=== PATIENT | female | born 1995 | race Caucasian/White ===

== ENCOUNTER → 2018-01-04 | Outpatient (CLI) | payer OTHER | LOC: HPND 09:24 | PROVIDERS: ATTEND Family Medicine | DX: O26.842 Uterine size-date discrepancy, second trimester (principal); O09.32 Supervision of pregnancy with insufficient antenatal care, second trimester | CPT/HCPCS: 76805 ==

== ENCOUNTER → 2018-02-01 | Outpatient (CLI) | payer OTHER | LOC: HPND 10:01 | PROVIDERS: ATTEND Family Medicine | DX: Z36.2 Encounter for other antenatal screening follow-up (principal); O09.32 Supervision of pregnancy with insufficient antenatal care, second trimester | CPT/HCPCS: 76816 ==

== ENCOUNTER 2018-05-03 17:54 | Inpatient (IN) ==
[2018-05-03] MEDS ORDERED: Naloxone Inj 0.4 MG/ML Vial IV.PUSH PRN (19:14)
[2018-05-03] MEDS ORDERED: fentaNYL Citrate Inj 100 MCG/2 ML Ampul IV.PUSH PRN (19:14)
[2018-05-03] MEDS ORDERED: Sodium Chlor 0.9% Inj 500 ML IV.SIG ONE (19:14)
[2018-05-03] MEDS ORDERED: Oxytocin 30 Units/500ml Premix 30 UNITS/500 ML BAG IV.SIG ONE (19:14)
[2018-05-03] MEDS ORDERED: Sod Chloride 0.9% Inj 1,000 ML IV.CONT SCH (19:15)
[2018-05-03] MEDS ORDERED: Citric Acid/Sodium Citrate Liq 30 ML UDC PO SCH (19:15)
--- NOTE | 2018-05-03 19:17 | ED ---
History of Present Illness Primary Care Physician: NOT REQUIRED Chief Complaint: Contractions History of Present Illness: 22-year-old who is at approximately 42 weeks gestation based on an EDC from a 26 week ultrasound comes in complaining of occasional contractions and concern about well-being. Patient has no care except for single visit to the [facility] but denies any obvious complications Weeks Gestation:: 42 Para: 0 : 1 - Inpatient Certification If this patient has been admitted as an Inpatient: I certify that the inpatient services were ordered in accordance with Medicare regulations governing the order. This includes certification that hospital inpatient services are reasonable and necessary and in the case of services not specified as inpatient-only under 42 CFR 419.22(n), that they are appropriately provided as inpatient services in accordance to with the 2-midnight benchmark under 43 CFR 412.3(e) Review of Systems All other systems reviewed negative except as stated in HPI PMFSH - Medical / Surgical Hx Neg / Unobtainable Medical Problems Denied: Yes Surgical History: No Previous Surgery - Tobacco History Second Hand Smoke Exposure: No Smoking Status: Never smoker - Travel History Recent Travel in the [place] Within the Last 8 Weeks: No Recent Travel Out of the Country Within the Last 8 Weeks: No Medications and Allergies Allergies Allergy/AdvReac Type Severity Reaction Status Date / Time No Known Allergies Allergy Verified 05/03/18 18:31 Home Medications Medication Instructions Recorded Confirmed Type PNV #[id number] 1 tab PO DAILY 05/03/18 05/03/18 History Exam Vital signs: Vital Signs 05/03/18 18:20 05/03/18 18:25 05/03/18 18:50 Temperature 98.3 F Pulse Rate 78 92 H 95 H Respiratory Rate 16 Blood Pressure 131/83 05/03/18 18:55 Temperature Pulse Rate 87 Respiratory Rate Blood Pressure Intake & Output 05/03/18 05/03/18 05/04/18 06:59 18:59 06:59 Weight 84 kg - Constitutional no acute distress - Routine HEENT Exam Head: Present: normocephalic - Routine Neck Exam Present: supple - Routine Respiratory Exam Present: CTA bilaterally - Routine Cardiovascular Exam Present: RRR - Routine Abdominal Exam Present: soft Comments: Gravid - Routine Exam Comments: Cervix is 1/50/-3 heart rate baseline is 140 with moderate variability, accelerations are present, decelerations are absent, category 1 tracing Triage/Final Diagnosis - Evaluation Vital signs: Vital Signs - 24 hr 05/03/18 18:20 05/03/18 18:25 05/03/18 18:50 Temperature 98.3 F Pulse Rate 78 92 H 95 H Respiratory Rate 16 Blood Pressure 131/83 05/03/18 18:55 Temperature Pulse Rate 87 Respiratory Rate Blood Pressure - Final Diagnosis (1) 42 weeks gestation of Current Visit: Yes Status: Acute (2) False labor after 37 completed weeks of gestation Current Visit: Yes Status: Acute (3) No care in current in third trimester Current Visit: Yes Status: Acute
[2018-05-03 20:55] LABS: Baso % (Auto) 0.4 % (0.0-2.0); Eos # (Auto) 0.1 th/mm3 (0.0-0.4); Eos % (Auto) 1.7 % (0.0-4.0); Hematocrit 38.7 % (35.0-46.0); Hemoglobin 12.9 gm/dL (11.6-15.3); Lymph # (Auto) 2.3 th/mm3 (1.0-4.8); Mean Corpuscular HGB Conc 33.4 % (32.0-36.0); Mean Corpuscular Hemoglobin 28.9 pg (27.0-34.0); Mean Corpuscular Volume 86.4 fL (80.0-100.0); Mono # (Auto) 0.7 th/mm3 (0.0-0.9); Mono % (Auto) 8.1 % (0.0-8.0); Neut # (Auto) 5.7 th/mm3 (1.8-7.7); Neut % (Auto) 63.8 % (16.0-70.0); Platelet Count 244 th/mm3 (150-450); Red Blood Count 4.48 mil/mm3 (4.00-5.30); Red Cell Distribution Width 15.3 % (11.6-17.2); White Blood Count 8.9 th/mm3 (4.0-11.0)
[2018-05-03 21:03] LABS: Amphetamine Urine With Conf Neg (Neg); Benzodiazepine Urine With Conf Neg (Neg)
[2018-05-03 21:22] LABS: Bacteria,Urine Occasional /hpf; Bilirubin,Urine Negative (Negative); Clarity,Urine Hazy (Clear); Color,Urine Yellow (Yellw/Straw); Glucose,Urine (UA) Negative (Negative); Leukocyte Esterase,Urine Trace (Negative); Mucus,Urine Few /lpf (Occasional); Nitrite,Urine Negative (Negative); Specific Gravity,Urine 1.024 (1.002-1.035); Squamous Epithelial Cell,Urine 5 /hpf (0-5)
[2018-05-04] MEDS: fentaNYL Citrate Inj 100 MCG/2 ML Ampul IV.PUSH PRN ×2 (01:58→04:28)
[2018-05-04] MEDS ORDERED: fentaNYL 2MCG-Bupiv 0.125% Epi 150 ML EPIDURAL ONE (07:20)
[2018-05-04] MEDS ORDERED: fentaNYL Citrate Inj 100 MCG/2 ML Ampul EPIDURAL ONE ×2 (08:16→08:18)
[2018-05-04] MEDS ORDERED: fentaNYL 2MCG-Bupiv 0.125% Epi 150 ML EPIDURAL PRN (08:23)
[2018-05-04] MEDS ORDERED: Oxytocin 30 Units/500ml Premix 30 UNITS/500 ML BAG IV.SIG PRN (08:43)
--- NOTE | 2018-05-04 09:00 | P.OBLABOR ---
Subjective Interval history: Epidural placed. Patient feeling contractions. IUPC placed. Pitocin started at 2 ,2,30. Cervix dilated to 5. Objective Vital Signs: Vital Signs - 8 hr 05/04/18 01:00 05/04/18 01:30 05/04/18 02:01 Temperature 98.0 F Pulse Rate Respiratory Rate 18 18 Blood Pressure 05/04/18 03:00 05/04/18 03:30 05/04/18 04:30 Temperature Pulse Rate 86 Respiratory Rate 18 18 18 Blood Pressure 135/82 05/04/18 05:58 05/04/18 06:44 05/04/18 06:45 Temperature Pulse Rate 92 H Respiratory Rate 18 18 Blood Pressure 136/88 05/04/18 07:37 05/04/18 07:40 05/04/18 07:54 Temperature Pulse Rate 103 H 101 H Respiratory Rate 22 Blood Pressure 142/61 H 129/83 05/04/18 07:55 05/04/18 08:10 05/04/18 08:15 Temperature Pulse Rate 103 H 107 H 88 Respiratory Rate Blood Pressure 131/81 128/78 134/77 05/04/18 08:27 05/04/18 08:35 05/04/18 08:40 Temperature Pulse Rate 78 90 87 Respiratory Rate Blood Pressure 137/81 101/75 Objective: Pelvic Exam: Cervix: Open Dilatation: 5 Effacement: 90 Station: -2 Presentation: vertex Membranes: ruptured Uterine Contractions: Every 2-3 minutes FHT's: Category: 2 Baseline: 120 Reactive: yes Variability: moderate Decels: variables Weeks Gestation: 41 Assessment and Plan - Diagnosis (1) 42 weeks gestation of Code(s): Z3A.42 - 42 weeks gestation of Status: Acute (2) No care in current in third trimester Code(s): O09.33 - Supervision of with insufficient care, third trimester Status: Acute - Plan GBS negative. Cervix 5/90/-2 FHT reassuring Continue to monitor contractions and progression, monitor q2hrs
[2018-05-04] MEDS ORDERED: Witch Hazel 50%/Glyderin 12.5% 40 Pad Jar RECTAL PRN (11:25)
[2018-05-04] MEDS ORDERED: Benzocaine 20% Top Spray 60 ML Can TOPICAL PRN (11:25)
[2018-05-04] MEDS ORDERED: Zolpidem Tartrate 5 MG Tablet PO PRN (11:25)
[2018-05-04] MEDS ORDERED: Bisacodyl 10 MG Supp RECTAL PRN (11:25)
--- NOTE | 2018-05-04 11:40 | P.OBDELI ---
Weeks Gestation: 41 Medical Induction of Labor: Yes Artificial Rupture of Membrane: No Anesthesia: Epidural Vaginal Delivery: Spontaneous Presentation: Occiput anterior Nuchal Cord: x1 Delayed Cord Clamping (45 sec): Yes Laceration: 1 deg (at 4 o clock position) Repair: Vicryl running (2 stitches) Estimated blood loss (mL): 200 : Female Infant Female A Infant Delivery Date: 05/04/18 Delivery Time: 11:08 score (1 min): 7 score (5 min): 8 Additional Information: 22yo G1PO at 42/1 induced for post dates. Head delivered with maternal effort ZANDRA. Anterior shoulder delivered closely followed by posterior shoulder. Meconium fluid present. body followed. Infant placed on mother's chest. Cord clamping was delayed. First degree laceration noted in 4 oclock position, repaired with 2 stitches of 3-0 vicryl. Routine post care initiated. Attestation Attestation: The exam, history, and the medical decision-making described in the above note were completed with the assistance of the resident physician. I reviewed and agree with the findings presented. I attest that I had a [id number] encounter with the patient on the same day, and personally performed and documented my assessment and findings in the medical record.
[2018-05-04] MEDS ORDERED: Measles/Mumps/Rubella Vaccine Inj 0.5 ML Vial SQ ONE (16:00)
[2018-05-04] MEDS ORDERED: Diphtheria/Tetanus/Pertussis Vaccine Inj 0.5 ML Syringe IM ONE (16:00)
[2018-05-04] MEDS: Ibuprofen 400 MG Tablet PO PRN (20:15)
[2018-05-04] MEDS: Senna/Docusate Sodium 8.6/50 MG Tablet PO SCH (20:15)
[2018-05-05] MEDS: Senna/Docusate Sodium 8.6/50 MG Tablet PO SCH (09:14)
[2018-05-05] MEDS: Ibuprofen 400 MG Tablet PO PRN ×2 (09:14→19:56)
--- NOTE | 2018-05-05 10:17 | P.PNOB ---
Subjective Post day: 1 Interval history: Patient is a 22-year-old delivered at 42 weeks and 1 day. Patient is day 1 after induced vaginal delivery. Patient's pain is well- controlled. Patient reports minimal bleeding. Patient reports eating and drinking without any nausea or vomiting. Patient has passed gas but has not had a bowel movement. Patient denies chest pain and shortness of breath. Patient has been ambulating; she denies lower extremity pain. Patient reports desire for contraception, which she will discuss with her OB provider at her six week follow-up. Patient has decided to breast-feed. Baby is in NICU and is unable to tolerate feeds so mom is actively pumping. Objective Vital Signs/I&O: Vital Signs 05/04/18 10:25 05/04/18 10:30 05/04/18 11:14 Temperature 97.7 F Pulse Rate 85 86 107 H Respiratory Rate Blood Pressure 120/76 134/63 05/04/18 11:42 05/04/18 11:55 05/04/18 12:00 Temperature Pulse Rate 106 H 124 H Respiratory Rate 18 18 Blood Pressure 158/126 H 136/97 H 05/04/18 12:15 05/04/18 12:30 05/04/18 12:45 Temperature Pulse Rate 87 89 87 Respiratory Rate 18 20 18 Blood Pressure 122/76 132/80 110/70 05/04/18 14:39 05/04/18 16:51 05/04/18 20:20 Temperature 99.9 F H 98.4 F 98.2 F Pulse Rate 85 98 H Respiratory Rate 18 20 Blood Pressure 129/66 123/78 05/05/18 08:00 Temperature 97.6 F Pulse Rate 87 Respiratory Rate 20 Blood Pressure 105/75 Intake & Output 05/04/18 05/05/18 05/05/18 18:59 06:59 18:59 Intake Total 1000 / 1000 Balance 1000 / 1000 Intake: IV 1000 / 1000 LR 1000 mL Inj 1,000 ML @ 125 1000 / 1000 mls/hr IV.CONT .Q8H [facility] Rx#: [id number] Result Diagrams: 05/03/18 19:40 Objective Remarks: GENERAL: Well-nourished, well-developed patient. CARDIOVASCULAR: Regular rate and rhythm without murmurs, gallops, or rubs. RESPIRATORY: Breath sounds equal bilaterally. No accessory muscle use. ABDOMEN/GI: Abdomen soft, non-tender. Fundus: Firm, non-tender at umbilicus. GENITOURINARY: Light to moderate bleeding. EXTREMITIES: No cyanosis or edema, non-tender, without signs of DVT. Medications and IVs: Active Medications Al Hydroxide/Mg Hydroxide (Milk Of Magnesia Liq) 30 ml PO Q12H PRN PRN Reason: Mild Constipation Benzocaine (Americaine 20% Top [place]) 1 spray TOPICAL Q4H PRN PRN Reason: For Perineum Discomfort Bisacodyl (Dulcolax Supp) 10 mg RECTAL DAILY PRN PRN Reason: SEVERE CONSITIPATION Citric Acid/Sodium Citrate (Sodium Citrate/Citric Acid Liq) 30 ml PO YARD HOSTL[facility] Stop: 05/07/18 19:14 Fentanyl Citrate (Fentanyl Inj) 50 mcg IV.PUSH Q1H PRN PRN Reason: Pain Scale 3 - 5 Last Admin: 05/04/18 04:28 Dose: 50 mcg Fentanyl Citrate (Fentanyl Inj) 100 mcg IV.PUSH Q1H PRN PRN Reason: PAIN SCALE 6 TO 10 Lactated Ringer's (Lr 1000 Ml Inj) 1,000 mls @ 125 mls/hr IV.CONT .Q8H [facility] Last Infusion: 05/04/18 07:50 Dose: Infused Sodium Chloride (Ns Inj) 1,000 mls @ 100 mls/hr IV.CONT .Q10H [facility] Last Admin: 05/04/18 02:00 Dose: Not Given Fentanyl/Bupivacaine/Sodium Chlor (Fentanyl 2 Mcg-Bupiv 0.125% Epi) 150 mls @ 0 mls/hr EPIDURAL TITRATE PRN; Protocol PRN Reason: LABOR PAIN Lactulose (Lactulose Liq) 30 ml PO DAILY PRN PRN Reason: SEVERE CONSITIPATION Lidocaine HCl (Xylocaine 1% Inj) 0.1 ml INFILTRATN PRN PRN PRN Reason: For IV start Stop: 05/06/18 19:13 Lidocaine HCl (Xylocaine 1% Inj) 10 ml INFILTRATN PRN PRN PRN Reason: For episiotomy repair Stop: 05/05/18 19:13 Mineral Oil (Muri-Lube Oil) 10 ml TOPICAL PRN PRN PRN Reason: PRN perineal massage Naloxone HCl (Narcan Inj) 0.1 mg IV.PUSH Q2M PRN PRN Reason: for opiate reversal Ondansetron HCl (Zofran Odt) 4 mg PO Q6H PRN PRN Reason: NAUSEA OR VOMITING Senna/Docusate Sodium (Conchis-Colace) 1 tab PO BID [facility] Last Admin: 05/05/18 09:14 Dose: 1 tab Sennosides (Senokot) 17.2 mg PO Q12H PRN PRN Reason: Moderate Constipation Sodium Chloride (Ns Flush) 2 ml IV.FLUSH UNSCH PRN PRN Reason: FLUSH AFTER USING IV ACCESS Sodium Chloride (Ns Flush) 2 ml IV.FLUSH BID [facility] Witch Alejandra/Glycerin (Tucks Pads) 1 applicatio RECTAL QID PRN PRN Reason: HEMORRHOIDS Zolpidem Tartrate (Ambien) 5 mg PO HS PRN PRN Reason: SLEEP Assessment and Plan - Plan Patient is a 22-year-old delivered at 42 weeks and 2 days. Patient is day 1 after induced vaginal delivery. * Continue routine care. * Motrin and Percocet when necessary for pain. * Encourage OOB. * Pelvic rest for 6 weeks will need follow-up appointment at that time. Patient provided with information to [facility]. * Contraception: To discuss with OB provider at six week follow-up appointment. * Anticipate discharge today. - Attending Attestation The exam, history, and the medical decision-making described in the above note were completed with the assistance of the resident physician. I reviewed and agree with the findings presented. I attest that I had a [id number] encounter with the patient on the same day, and personally performed and documented my assessment and findings in the medical record.
[2018-05-06] MEDS: Senna/Docusate Sodium 8.6/50 MG Tablet PO SCH (00:04)
--- NOTE | 2018-05-06 09:06 | P.PNOB ---
Subjective Post day: 2 Interval history: Patient is a 22-year-old delivered at 42 weeks and 1 day. Patient is day 2 after induced vaginal delivery. Patient's pain is well- controlled. Patient reports minimal bleeding. Patient reports eating and drinking without any nausea or vomiting. Patient has passed gas but has not had a bowel movement. Patient denies chest pain and shortness of breath. Patient has been ambulating; she denies lower extremity pain. Patient reports desire for contraception, which she will discuss with her OB provider at her six week follow-up. Patient has decided to breast-feed. Baby is in NICU and is unable to tolerate feeds so mom is actively pumping. Objective Vital Signs/I&O: Vital Signs 05/05/18 20:00 05/06/18 08:21 Temperature 98.3 F 98.3 F Pulse Rate 103 H 75 Respiratory Rate 18 20 Blood Pressure 142/70 H 121/82 Result Diagrams: 05/03/18 19:40 Objective Remarks: GENERAL: Well-nourished, well-developed patient. CARDIOVASCULAR: Regular rate and rhythm without murmurs, gallops, or rubs. RESPIRATORY: Breath sounds equal bilaterally. No accessory muscle use. ABDOMEN/GI: Abdomen soft, non-tender. Fundus: Firm, non-tender at umbilicus. GENITOURINARY: Light to moderate bleeding. EXTREMITIES: No cyanosis or edema, non-tender, without signs of DVT. Medications and IVs: Active Medications Al Hydroxide/Mg Hydroxide (Milk Of Magnesia Liq) 30 ml PO Q12H PRN PRN Reason: Mild Constipation Benzocaine (Americaine 20% Top [place]) 1 spray TOPICAL Q4H PRN PRN Reason: For Perineum Discomfort Bisacodyl (Dulcolax Supp) 10 mg RECTAL DAILY PRN PRN Reason: SEVERE CONSITIPATION Citric Acid/Sodium Citrate (Sodium Citrate/Citric Acid Liq) 30 ml PO [employer] [facility] Stop: 05/07/18 19:14 Fentanyl Citrate (Fentanyl Inj) 50 mcg IV.PUSH Q1H PRN PRN Reason: Pain Scale 3 - 5 Last Admin: 05/04/18 04:28 Dose: 50 mcg Fentanyl Citrate (Fentanyl Inj) 100 mcg IV.PUSH Q1H PRN PRN Reason: PAIN SCALE 6 TO 10 Lactated Ringer's (Lr 1000 Ml Inj) 1,000 mls @ 125 mls/hr IV.CONT .Q8H [facility] Last Infusion: 05/04/18 07:50 Dose: Infused Sodium Chloride (Ns Inj) 1,000 mls @ 100 mls/hr IV.CONT .Q10H [facility] Last Admin: 05/04/18 02:00 Dose: Not Given Fentanyl/Bupivacaine/Sodium Chlor (Fentanyl 2 Mcg-Bupiv 0.125% Epi) 150 mls @ 0 mls/hr EPIDURAL TITRATE PRN; Protocol PRN Reason: LABOR PAIN Lactulose (Lactulose Liq) 30 ml PO DAILY PRN PRN Reason: SEVERE CONSITIPATION Lidocaine HCl (Xylocaine 1% Inj) 0.1 ml INFILTRATN PRN PRN PRN Reason: For IV start Stop: 05/06/18 19:13 Mineral Oil (Muri-Lube Oil) 10 ml TOPICAL PRN PRN PRN Reason: PRN perineal massage Naloxone HCl (Narcan Inj) 0.1 mg IV.PUSH Q2M PRN PRN Reason: for opiate reversal Ondansetron HCl (Zofran Odt) 4 mg PO Q6H PRN PRN Reason: NAUSEA OR VOMITING Senna/Docusate Sodium (Conchis-Colace) 1 tab PO BID [facility] Last Admin: 05/06/18 00:04 Dose: Not Given Sennosides (Senokot) 17.2 mg PO Q12H PRN PRN Reason: Moderate Constipation Sodium Chloride (Ns Flush) 2 ml IV.FLUSH UNSCH PRN PRN Reason: FLUSH AFTER USING IV ACCESS Sodium Chloride (Ns Flush) 2 ml IV.FLUSH BID [facility] Witch Alejandra/Glycerin (Tucks Pads) 1 applicatio RECTAL QID PRN PRN Reason: HEMORRHOIDS Zolpidem Tartrate (Ambien) 5 mg PO HS PRN PRN Reason: SLEEP Assessment and Plan - Diagnosis (1) Vaginal delivery Code(s): O80 - Encounter for full-term uncomplicated delivery Status: Acute (2) No care in current Code(s): O09.30 - Supervision of with insufficient care, unspecified trimester Status: Acute - Plan Patient is a 22-year-old delivered at 42 weeks and 2 days. Patient is day 2 after induced vaginal delivery. * Continue routine care. * Motrin and Percocet when necessary for pain. * Encourage OOB. * Pelvic rest for 6 weeks will need follow-up appointment at that time. Patient provided with information to make appointment with [facility]. * Contraception: To discuss with OB provider at six week follow-up appointment. * Anticipate discharge today.
== END 2018-05-06 12:54 | disposition home or self-care (01) ==
LOC: HOBED 17:54 → H2E 19:05 → H1EA 05-04 13:31
PROVIDERS: ADMIT Obstetrics & Gynecology Obstetrics; ATTEND Obstetrics & Gynecology Obstetrics